=== PATIENT | female | born 1995 | race African-American/Black ===

== ENCOUNTER 2018-03-20 14:35 | Outpatient (CLI) | payer OTHER | END 2018-03-20 19:51 | disposition home or self-care (01) | LOC: US 14:35 | DX: Z12.31 Encounter for screening mammogram for malignant neoplasm of breast (principal); R92.8 Other abnormal and inconclusive findings on diagnostic imaging of breast ==

== ENCOUNTER 2019-12-29 09:44 | Outpatient (CLI) | payer OTHER | END 2019-12-29 21:29 | disposition home or self-care (01) | LOC: LAB 09:44 | DX: Z20.828 Contact with and (suspected) exposure to other viral communicable diseases (principal) | CPT/HCPCS: 87635; G2023; U0002 ==